=== PATIENT | female | born 1970 | race Caucasian/White ===

== ENCOUNTER 2021-05-04 08:20 | Observation (INO) | payer OTHER ==
[~2021-05-04] VITALS: Ht 162.6 cm; Wt 86.2 kg
[~2021-05-04 08:20] MED LIST: CRES10TA PO; HYDR12CA PO; ceFAZolin SOD 1 GM in D5W MINI-BAG PLUS 50 ML IV ONE
[2021-05-04] MEDS ORDERED: BACITRACIN PWD 50,000 UNITS VIAL As Ordered ONE (09:25)
[2021-05-04] MEDS ORDERED: EPINEPHrine INJ 1 MG/ML 1ML AMP As Ordered ONE (09:25)
[2021-05-04] MEDS ORDERED: LIDOCAINE 1% MDV 20ML VIAL As Ordered ONE (09:25)
[2021-05-04] MEDS ORDERED: BUPIVACAINE LIPOSOME/PF 1.3% 20ML VIAL (13.3MG/ML)(EXPAREL)(C9290 PER1MG) As Ordered ONE (09:25)
[2021-05-04] MEDS ORDERED: propofoL 200 MG/20 ML VIAL As Ordered ONE (09:41)
[2021-05-04] MEDS ORDERED: dexameTHASONE 4 MG/ML 1ML VIAL (J1100 PER 1MG) As Ordered ONE (09:41)
[2021-05-04] MEDS ORDERED: LIDOCAINE 2% 100MG/5ML SDV (FOR ANES.) As Ordered ONE (09:41)
[2021-05-04] MEDS ORDERED: ROCURONIUM BROMIDE 50 MG/5 ML VIAL As Ordered ONE (09:41)
[2021-05-04] MEDS ORDERED: fentaNYL 250 MCG/5 ML INJECTION (J3010) As Ordered ONE (09:41)
[2021-05-04] MEDS ORDERED: MIDAZOLAM INJ 2MG/2ML VIAL (J2250 PER 1MG) As Ordered ONE (09:41)
[2021-05-04] MEDS ORDERED: ONDANSETRON 4MG/2ML VIAL As Ordered ONE (09:41)
[2021-05-04] MEDS ORDERED: SEVOFLURANE INHAL SOLN 250 ML BTL As Ordered ONE (09:54)
[2021-05-04] MEDS ORDERED: ceFAZolin 1GM VIAL (J0690 PER 500MG) As Ordered ONE (10:25)
[2021-05-04] MEDS ORDERED: SUGAMMADEX SODIUM 500 MG/5 ML VIAL (BRIDION) As Ordered ONE (10:46)
[2021-05-04] MEDS ORDERED: ACETAMINOPHEN 1000MG 100ML IV BTL (OFIRMEV) (J0131 PER 10MG) As Ordered ONE (10:46)
[2021-05-04] MEDS ORDERED: HYDROmorphone HCL 2 MG/ML 1ML VIAL (J1170) As Ordered ONE (10:46)
[2021-05-04] MEDS ORDERED: ePHEDrine SULFATE 25 MG/5 ML(5MG/ML) SYRINGE As Ordered ONE (10:55)
[2021-05-04] MEDS ORDERED: PHENYLephrine 500MCG 5ML (100MCG/ML) SYRINGE As Ordered ONE (13:28)
--- NOTE | 2021-05-04 13:58 | POST-OPPD ---
Postoperative Procedure Note Date Of Procedure: May 04, 2021 PREOPERATIVE DIAGNOSIS: Bilateral breast hypertrophy POSTOPERATIVE DIAGNOSIS: same FINDINGS: breast hypertrophy PROCEDURE: Bilateral breast reduction SURGEON: Dr Moe ANESTHESIA: General SPECIMENS: Right breast 844 gm, Left breast 925 gm ESTIMATED BLOOD LOSS: 100 cc REPLACED: none DRAINS: 10 mm YEYO x 2 COMPLICATIONS: none POSTOPERATIVE CONDITION: stable SHADE MOE DO May 04, 2021 13:58
--- NOTE | 2021-05-04 13:58 | ROOPDOC ---
[facility] Report Of Operation Report of Operation DATE OF PROCEDURE: 05/04/21 PREOPERATIVE DIAGNOSIS: Bilateral breast hypertrophy POSTOPERATIVE DIAGNOSIS: same FINDINGS: breast hypertrophy PROCEDURE: Bilateral breast reduction SURGEON: Dr Moe ANESTHESIA: General SPECIMENS: Right breast 844 gm, Left breast 925 gm ESTIMATED BLOOD LOSS: 100 cc REPLACED: none DRAINS: 10 mm YEYO x 2 COMPLICATIONS: none POSTOPERATIVE CONDITION: stable DESCRIPTION OF PROCEDURE: This is a 50-year-old female who upper back and neck pain worsened by large breasts. She wears 40 G bra. She is scheduled for bilateral breast reduction. Risks, benefits, and alternatives were discussed with the patient in detail, and she is ready to proceed. The day of surgery, she was marked in the upright position and informed consent was obtained. She measured 36 cm from sternal notch to nipple on on the left and 34 cm on the right sides, IMF at 22 cm bilaterally. She was brought into the operating room and placed in the supine position. Preoperative antibiotics and 5000 units heparin subcutaneous were given. Sequential pneumatic stocking were placed on the lower calves. General anesthesia was induced. She was prepped and draped in the usual sterile fashion. We started our procedure on the right side. Her nipple areolar complex was outlined 45 mm in diameter, and the patient was marked according superior medial pedicle. We started our incision by scoring the nipple areolar complex area, and then dissection was continued until the inferior lateral portion of the breast was resected. Hemostasis was obtained using electrocautery. The pedicle was de- epithelialized using Cornell scissors, good perfusion to the nipple at all times. Wound was irrigated with Bacitracin solution. We used Exparel 6 cc for local anesthesia to infiltrate in the Pectoralis muscle as well as the breast tissue. Tissel spray used for coagulation as well. Than pedicle was turned superior to its new location at need to cm from sternal notch. The mound was re-created using conforming 0 Vicryl sutures. Pillars were closed with interrupted 3-0 Monocryl sutures. The vertical limb was 10 cm. Excess tissue inferiorly was measured and resected, creating the horizontal scar. Nipple area complex was brought into view through the new opening and sutured in place with 3-0 and 4-0 Monocryl sutures and a 5-0 plain. A 10 mm Hakan-Rodrigez drain was placed through the lateral portion of the horizontal incision. Then we turned our attention to the left side. Mirror procedure was carried out. Her nipple areolar complex was outlined 45 mm in diameter, and the patient was marked according superior medial pedicle. Resection was done according to superior-medial pedicle using electrocautery and PEEK cautery. Hemostasis was obtained. Tissel spray used to aide hemostasis as well. The pedicle was in good viable condition. Exparel was infiltrated through the pectoralis muscle and the breast tissue 6 cc. Than pedicle was turned superior to its new location at 22 cm from sternal notch. The mound was re-created using conforming 0 Vicryl sutures. Pillars were closed with interrupted 3-0 Monocryl sutures. The vertical limb was 10 cm. Excess tissue inferiorly was measured and resected, creating the horizontal scar. Nipple area complex was brought into view through the new opening and sutured in place with 3-0 and 4-0 Monocryl sutures and a 5-0 plain gut suture in interrupted fashion. A 10 mm Hakan-Rodrigez drain was placed through the lateral portion of the horizontal incision. Remaining Exparel injected in the horizontal incision. Total Exparel use 20 cc. Resected tissue sent to pathology in two specimens right and left breast tissue. Right breast 844 grams, left breast 925 grams. Dressings were applied to vertical and horizontal incision: Prineo. Nipples areolar complex: Xeroform and a bulky dressing with a surgical bra. Patient was extubated in the operating room without difficulty and was transferred to the recovery room in stable condition. SHADE MOE DO May 04, 2021 13:58
[2021-05-04] MEDS ORDERED: PERCOCET 5MG/325MG TAB PO PRN (14:00)
[2021-05-04] MEDS ORDERED: LR 1,000 ML IV SCH (14:00)
[2021-05-04] MEDS ORDERED: fentaNYL 100 MCG/2 ML INJECTION (J3010) IV PRN (14:00)
[2021-05-04] MEDS ORDERED: HYDROMORPHONE HCL 0.5 MG/ 0.5 ML SYRINGE (J1170 PER 1) IV PRN (14:00)
[2021-05-04] MEDS ORDERED: ONDANSETRON 4MG/2ML VIAL IV PRN ×2 (14:00)
[2021-05-04] MEDS ORDERED: oxyCODONE 5MG TAB PO PRN (14:00)
[2021-05-04] MEDS: LR 1,000 ML IV SCH (14:23)
[2021-05-04 16:00] VITALS: BP 123/72
[2021-05-04] MEDS: ACETAMINOPHEN TAB 650MG DOSE (2X325MG) PO PRN (16:01)
[2021-05-04 16:30] VITALS: BP 124/75
[2021-05-04 17:30] VITALS: BP 122/75
[2021-05-04] MEDS: KETOROLAC TROMETHAMINE 10 MG TAB PO PRN (17:41)
[2021-05-04] MEDS: ceFAZolin SOD 1 GM in D5W MINI-BAG PLUS 50 ML IV SCH (17:41)
[2021-05-04 18:30] VITALS: BP 123/75
[2021-05-04 19:30] VITALS: BP 122/76
[2021-05-04 20:30] VITALS: BP 120/76
[2021-05-05] MEDS: ceFAZolin SOD 1 GM in D5W MINI-BAG PLUS 50 ML IV SCH ×2 (01:49→10:06)
[2021-05-05] MEDS: ACETAMINOPHEN TAB 650MG DOSE (2X325MG) PO PRN (01:57)
[2021-05-05] MEDS: KETOROLAC TROMETHAMINE 10 MG TAB PO PRN (02:29)
[2021-05-05] MEDS: LR 1,000 ML IV SCH (02:30)
[2021-05-05 04:15] VITALS: BP 117/68
--- NOTE | 2021-05-05 08:28 | IPNPDOC ---
Subjective General Date Seen: May 05, 2021 Subject Chief Complaint/History The patient is a 50-year-old female admitted with a reason for visit of Bilateral Breast Hypertrophy. Status post breast reduction postop day 1. Doing well. Pain control. Current Medications Current Medications Current Medications Medications (Trade) Dose Ordered Sig/Shorty Route PRN Reason Start Time Stop Time Status Last Admin Dose Admin Acetaminophen (Tylenol Tab) 650 mg Q6H PRN PO MILD PAIN (PS 1-4) 05/04/21 14:00 05/05/21 01:57 Cefazolin Sodium 1 gm/Dextrose 50 ml @ 100 mls/hr Q8H IV 05/04/21 18:00 05/05/21 01:49 Fentanyl Citrate (Sublimaze) 25 mcg Q5MP PRN IV PAIN LEVEL 5-10 05/04/21 14:00 05/04/21 16:00 DC Hydromorphone HCl (Dilaudid) 0.2 mg Q5MP PRN IV PAIN LEVEL 4-7 05/04/21 14:00 05/04/21 16:00 DC Ketorolac Tromethamine (ToRADol) 10 mg Q6HP PRN PO MODERATE PAIN (PS 5-7) 05/04/21 14:00 05/09/21 13:59 05/05/21 02:29 Lactated Ringer's 1,000 ml @ 75 mls/hr [id number] IV 05/04/21 14:00 05/05/21 02:30 Lactated Ringer's 1,000 ml @ 100 mls/hr Q10H IV 05/04/21 14:00 05/04/21 16:00 DC Ondansetron HCl (ZOFRAN INJection) 4 mg Q4H PRN IV NAUSEA OR VOMITING 05/04/21 14:00 Ondansetron HCl (ZOFRAN INJection) 4 mg Q4HP PRN IV NAUSEA OR VOMITING 05/04/21 14:00 05/04/21 16:00 DC Oxycodone HCl (Roxicodone, Oxyir) 5 mg ASDIRECTED PRN PO PAIN LEVEL 1-4 05/04/21 14:00 05/04/21 16:00 DC 05/04/21 14:25 Oxycodone/ Acetaminophen (Percocet 5mg/ 325mg Tablet) 2 tab Q4HP PRN PO PAIN LEVEL 8-10 05/04/21 14:00 Allergies Coded Allergies: No Known Allergies (Unverified , 04/26/21) Objective Physical Examination Examination GENERAL APPEARANCE:Patient seen, laying in bed, awake, alert, and oriented. Comfortable, in no acute distress. SKIN: Warm and moist. BREAST: Right and left soft, non-tender incisions intact. YEYO drains: [id number] cc/24 hr. NAC: Viable, warm, symmetrical, mild post-op ecchymosis, no expanding hematoma. NECK: Supple, no thyromegaly. No obvious jugular venous distention. LUNGS: Clear to auscultation bilaterally. No wheezing appreciated. HEART: No chest wall abnormalities. Regular rate and rhythm with no murmurs appreciated. ABDOMEN: Abdomen is soft, non-tender, non-distended. EXTREMITIES: No edema identified. No calf tenderness. Vital Signs Vital Signs Date Time Temp Pulse Resp B/P (MAP) Pulse Ox O2 Delivery O2 Flow Rate FiO2 05/05/21 04:15 98.5 75 18 117/68 (84) 94 Room Air 05/04/21 20:00 1.0 I&Os I&O- Last 24 Hours up to 6 AM 05/05/21 06:00 Intake Total 2500 ml Output Total 140 ml Balance 2360 ml Impression Status post bilateral breast reduction. They 1. Stable for discharge. Dressing changed today. Follow-up with plastic surgery. Instructions given. Plan / VTE VTE Prophylaxis Ordered?: Yes SHADE MOE DO May 05, 2021 08:28
[2021-05-05] MEDS ORDERED: PERCOCET PO (08:30)
[2021-05-05 10:00] VITALS: BP 122/69
== END 2021-05-05 13:10 | disposition home or self-care (01) ==
LOC: M SDC 08:20 → M MS5PR 14:01 → M SDC 15:50 → M MS5PR 15:50 → M SDC 05-05 13:10
PROVIDERS: ADMIT Plastic Surgery Surgery of the Hand; ATTEND Plastic Surgery Surgery of the Hand
DX: N62 Hypertrophy of breast (principal); I10 Essential (primary) hypertension; E78.5 Hyperlipidemia, unspecified; Z79.899 Other long term (current) drug therapy
CPT/HCPCS: 19318; 88305; 96365; 96366; C9290; J0131; J0690; J1100; J1170; J2250; J2370; J2405; J3010